=== PATIENT | female | born 1985 | race Caucasian/White ===

== ENCOUNTER 2017-02-26 21:37 | Emergency (ER) | payer BC | END 2017-02-26 22:22 | disposition home or self-care (01) | LOC: ER 21:37 | DX: S01.85XA Open bite of other part of head, initial encounter (principal); J45.909 Unspecified asthma, uncomplicated; Z79.899 Other long term (current) drug therapy; Z91.040 Latex allergy status; W54.0XXA Bitten by dog, initial encounter ==